=== PATIENT | female | born 1995 | race Caucasian/White ===

== ENCOUNTER → 2022-08-19 | Outpatient (CLI) | payer SELFPAY | END | disposition home or self-care (01) | PROVIDERS: Referring Provider Otolaryngology Otolaryngology/Facial Plastic Surgery; Visit Provider Otolaryngology Otolaryngology/Facial Plastic Surgery | DX: J32.9 Chronic sinusitis, unspecified (principal) | CPT/HCPCS: 87070; 87205 ==